=== PATIENT | male | born 1995 | race Caucasian/White ===

== ENCOUNTER 2024-07-12 20:52 | Emergency (ER) | payer SELFPAY ==
[~2024-07-12] VITALS: Ht 185.4 cm; Wt 91.0 kg
[2024-07-12 21:27] VITALS: O2SAT 100
[2024-07-12] MEDS ORDERED: AMOX1TAB16 MT (21:57)
[2024-07-12] MEDS: TETANUS, DIPHTHERIA, PERTUSSIS VAC/PF 0.5ML (>10YR OLD) IM ONE (22:00)
[2024-07-12 22:07] VITALS: BP 127/80; PULSE 75; RESP 16; TEMP 36.94740; O2SAT 99
== END 2024-07-12 22:07 | disposition home or self-care (01) ==
LOC: ER 20:52
DX: S80.812A Abrasion, left lower leg, initial encounter (principal); Z90.49 Acquired absence of other specified parts of digestive tract; W54.0XXA Bitten by dog, initial encounter; Y93.89 Activity, other specified; Y92.89 Other specified places as the place of occurrence of the external cause; Y99.8 Other external cause status
CPT/HCPCS: 90471; 90715; 99283